=== PATIENT | female | born 1985 | race Two or more races ===

== ENCOUNTER 2019-10-31 10:17 | Emergency (ER) | payer SELFPAY ==
[~2019-10-31] VITALS: Ht 165.1 cm; Wt 103.9 kg
[2019-10-31 11:37] VITALS: BP 157/104
--- NOTE | 2019-10-31 12:12 | PHYS DOC ---
Past Medical History Past Medical History: No Pertinent History Past Surgical History: Cholecystectomy Alcohol Use: None Drug Use: None Adult General Chief Complaint Chief Complaint: SKIN RASH/ABSCESS [facility] HPI Patient is a 34 year old female who presents with pain behind her left ear. The patient denies any ear pain, or sore throat. Denies any fever. Denies any runny nose, congestion, any other symptoms. The patient states that this been ongoing for several months. Complete ROS were reviewed and found to be within normal limits, except as documented in the HPI Physical Exam Physical Exam Constitutional: Well developed, well nourished, no acute distress, non-toxic appearance. [] HENT: Normocephalic, atraumatic, bilateral external ears normal, oropharynx mo ist, no oral exudates, nose normal. [] Eyes: PERRLA, EOMI, conjunctiva normal, no discharge. [] Neck: Normal range of motion, no tenderness, supple, no stridor. [] Skin: lymph node swelling behind left ear. Neurologic: Alert and oriented X 3, normal motor function, normal sensory function, no focal deficits noted. [] Psychologic: Affect normal, judgement normal, mood normal. [] Current Patient Data Vital Signs Vital Signs Date Time Temp Pulse Resp B/P (MAP) Pulse Ox O2 Delivery O2 Flow Rate FiO2 10/31/19 11:37 97.9 88 14 157/104 (121) 98 Room Air 97.9 EKG EKG [] Radiology/Procedures Radiology/Procedures [] Course & Med Decision Making Course & Med Decision Making Pertinent Labs and Imaging studies reviewed. (See chart for details) It appears her lymph node is swollen behind left ear. No infection source noted. Discussed with patient to follow up with primary care provider. A medical screening exam was performed on this patient and the patient does not appear to be having a medical emergency. Her symptoms are not of sufficient severity and within reasonable medical probability it is unlikely the absence of immediate medical attention would result in placing the health of the individual (or, with respect to a woman, the health of the woman or her unborn child) in serious jeopardy, serious impairment to bodily functions, or serious dysfunction of any bodily organ or part. If , the patient is not in labor Dragon Disclaimer Dragon Disclaimer This electronic medical record was generated, in whole or in part, using a voice recognition dictation system. Departure Departure Impression: Primary Impression: Lymph nodes enlarged Additional Impression: Encounter for medical screening examination Disposition: HOME, SELF-CARE Condition: STABLE Referrals: UNKNOWN PCP NAME (PCP) Patient Instructions: Medical Screening Exam Additional Instructions: Thank you for visiting [facility]. We appreciate you trusting us with your care. If any additional problems come up don't hesitate to return to visit us. Please follow up with your primary care provider so they can plan additional care if needed and know about the problem that you had. If symptoms worsen come back to the Emergency Department. Any concerning symptoms that start such as chest pain, shortness of air, weakness or numbness on one side of the body, running high fevers or any other concerning symptoms return to the ER. Problem Qualifiers PAU NAILS APRN Oct 31, 2019 12:12
== END 2019-10-31 12:43 | disposition home or self-care (01) ==
LOC: ER 10:17
DX: R59.9 Enlarged lymph nodes, unspecified (principal); H92.02 Otalgia, left ear; Z90.49 Acquired absence of other specified parts of digestive tract
CPT/HCPCS: 99281